=== PATIENT | male | born 1945 | race Caucasian/White ===

== ENCOUNTER 2021-07-22 14:42 | Day surgery (SDC) | payer MEDICARE ==
[2021-07-17 12:29] LABS: ALBUMIN 3.9 G/DL (3.4-5.0); ANION GAP 4 (8-16); BASOPHILS % (AUTO) 0.4 % (0-1); BLOOD UREA NITROGEN 18 MG/DL (7-18); BUN/CREATININE RATIO 17.1 (5.4-32.0); CALCIUM 8.8 MG/DL (8.5-10.1); CHLORIDE 103 MMOL/L (99-107); CREATININE 1.05 MG/DL (0.60-1.10); EOSINOPHILS # (AUTO) 0.1 X10'3 (0-0.9); EOSINOPHILS % (AUTO) 1.5 % (0-6); GLUCOSE 127 MG/DL (70-104); HEMATOCRIT 44.4 % (42.0-52.0); HEMOGLOBIN 15.5 g/dl (14.0-17.9); LYMPHOCYTES # (AUTO) 0.9 X10'3 (1.1-4.8); LYMPHOCYTES % (AUTO) 12.3 % (21-51); MEAN CORPUSCULAR HEMOGLOBIN 31.7 PG (27.0-31.0); MEAN CORPUSCULAR HGB CONC 34.9 g/dL (33.0-36.5); MEAN CORPUSCULAR VOLUME 90.9 FL (78-98); MEAN PLATELET VOLUME 7.8 FL (7.4-10.4); MONOCYTES # (AUTO) 0.6 X10'3 (0-0.9); NEUTROPHILS # (AUTO) 5.5 X10'3 (1.8-7.7); NEUTROPHILS % (AUTO) 77.8 % (42-75); PLATELET COUNT 241 X10'3 (140-440); POTASSIUM 4.2 MMOL/L (3.5-5.1); RED BLOOD COUNT 4.89 X10'6 (4.70-6.10); RED CELL DISTRIBUTION WIDTH 14.4 % (11.5-14.5); SODIUM 139 MMOL/L (135-145); TOTAL CARBON DIOXIDE 32.1 MMOL/L (24-32); WHITE BLOOD COUNT 7.1 X10'3 (4.5-11.0); eGFR 69 ML/MIN
[2021-07-17 12:38] LABS: APTT 41 SECONDS (22-32)
[2021-07-21 12:30] LABS: APTT 25 SECONDS (22-32)
[~2021-07-22] VITALS: Ht 175.3 cm; Wt 107.5 kg
[2021-07-22] VITALS (9 sets, daily range): BP systolic 110–140; BP diastolic 53–85
[2021-07-22] MEDS ORDERED: normal saline 1,000 ML IV SCH (15:00)
[2021-07-22] MEDS ORDERED: diphenhydrAMINE 25mg capsule PO PRN (15:00)
[2021-07-22] MEDS ORDERED: LORazepam 0.5 MG tablet PO PRN (15:00)
[2021-07-22] MEDS ORDERED: ROSU40TA22 PO (15:10)
[2021-07-22] MEDS ORDERED: METO50TA16 PO (15:10)
[2021-07-22] MEDS ORDERED: IBUP-1986 PO (15:10)
[2021-07-22] MEDS ORDERED: MELA5TAB12 PO (15:13)
[2021-07-22] MEDS ORDERED: LEVO50TA8 PO (15:13)
[2021-07-22] MEDS ORDERED: WARF10TA45 PEG (15:13)
[2021-07-22] MEDS ORDERED: LIDOcaine/PRILOcaine 5gm cream TP ONE (15:40)
[2021-07-22] MEDS ORDERED: heparin 1,000unit/ml 10ml vial 10 ML ONE ×2 (15:45→16:23)
[2021-07-22] MEDS ORDERED: verapamil 2.5 mg/ml inj IV ONE (15:45)
[2021-07-22] MEDS ORDERED: LIDOcaine 1% (10mg/ml)w/preservative injection 20ml MDV ONE (15:45)
[2021-07-22] MEDS ORDERED: fentaNYL/PF 50MCG/1 ML 2ML syringe ONE (15:45)
[2021-07-22] MEDS ORDERED: iohexol 350MG/ML 100ml bottle IV ONE ×2 (15:45→16:23)
[2021-07-22] MEDS ORDERED: midazolam 1 mg/ML 2ml injection ONE (15:45)
[2021-07-22] MEDS ORDERED: nitroGLYCERIN-Tridil 50MG/D5W 250 ML IV ONE (15:54)
[2021-07-22] MEDS ORDERED: iohexol 350 MG/ML 50ML vial IV ONE (16:21)
[2021-07-22] MEDS ORDERED: aspirin 325mg tablet ONE (16:23)
[2021-07-22] MEDS ORDERED: clopidogrel 300mg tablet ONE (16:23)
== END 2021-07-22 20:08 | disposition home or self-care (01) ==
LOC: SSTAY O 14:42
PROVIDERS: ATTEND Internal Medicine Interventional Cardiology
DX: R94.39 Abnormal result of other cardiovascular function study (principal); I25.10 Atherosclerotic heart disease of native coronary artery without angina pectoris; G47.33 Obstructive sleep apnea (adult) (pediatric); E78.5 Hyperlipidemia, unspecified; E03.9 Hypothyroidism, unspecified; Z86.718 Personal history of other venous thrombosis and embolism; Z79.01 Long term (current) use of anticoagulants; Z79.899 Other long term (current) drug therapy; Z87.891 Personal history of nicotine dependence
CPT/HCPCS: 36415; 80048; 85025; 85610; 85730; 93005; 93458; 99152; 99153; C1725; C1751; C1769; C1874; C1894; C9600; J1644; J2250; J3010; J3490; Q9967; A5120

== ENCOUNTER 2021-07-31 12:03 | Outpatient (CLI) | payer MEDICARE ==
[~2021-07-31 12:03] MED LIST: IBUP-1986 PO; LEVO50TA8 PO; MELA5TAB12 PO; METO50TA16 PO; ROSU40TA22 PO; WARF10TA45 PEG
[2021-07-31 12:58] LABS: APTT 29 SECONDS (22-32)
== END 2021-07-31 23:59 | disposition home or self-care (01) ==
LOC: LAB 12:03
PROVIDERS: ATTEND Internal Medicine Interventional Cardiology
DX: I10 Essential (primary) hypertension (principal); Z79.01 Long term (current) use of anticoagulants
CPT/HCPCS: 36415; 85610; 85730